=== PATIENT | female | born 1990 | race Caucasian/White ===

== ENCOUNTER 2021-01-24 15:58 | Emergency (ER) | payer OTHER ==
[~2021-01-24] VITALS: Ht 160 cm; Wt 72.6 kg
[2021-01-24] MEDS ORDERED: HYDROCODON-ACE1 EA10 PO (17:00)
== END 2021-01-24 18:25 | disposition home or self-care (01) ==
LOC: ED 15:58
DX: M54.6 Pain in thoracic spine (principal); X50.0XXA Overexertion from strenuous movement or load, initial encounter; Y99.0 Civilian activity done for income or pay; Z88.0 Allergy status to penicillin; Z88.1 Allergy status to other antibiotic agents
CPT/HCPCS: 96372; 99283; J1885

== ENCOUNTER 2021-11-07 09:03 | Inpatient (IN) | payer BC, OTHER ==
[~2021-11-07 09:03] MED LIST: HYDROCODON-ACE1 EA10 PO
--- NOTE | 2021-11-07 10:31 | NUR ---
COVID SWAB DONE TO BOTH NARES.
--- NOTE | 2021-11-07 14:37 | PR ---
[facility] [place] [facility] [address] [facility] [place], [place] [address] Signed Progress Notes IP Datetime Report Generated by CPN: 11/07/2021 14:37 PROGRESS NOTES: [id number] Impression: Normal Progression of Labor Plan: Continue Present Management; Anticipate Vaginal Delivery VITAL SIGNS: [id number] Vital Signs: Reviewed; Within Normal Limits EXAM: [id number] Dilatation: 7.0 Effacement: 90 Station: -1 Contractions: every 2-3 minutes MEMBRANES: [id number] Membranes Status: Intact Comments: Tolerating contractions, doing well, no Epidural desired. Cervix exam just done by RN; no change in past 1 hour. Consider AROM, but patient would like to wait a little longer before AROM. Continue monitoring. FETUS A: [id number] FHR Baseline: 145 Variability: Moderate 6-25bpm Accelerations: 15X15 FETUS B: [id number] Signing Physician: Fercho Alex MD Copies: ~ *Electronically Signed* 11/07/21 1432 FERCHO ALEX MD PATIENT NAME: EVIN ESPINOSA KIESHA PROGRESS NOTE DATE OF : [birth year] PHYSICIAN: FERCHO ALEX MD RPT #: [id number] REPORT IS CONFIDENTIAL AND NOT TO BE RELEASED WITHOUT AUTHORIZATION
--- NOTE | 2021-11-07 15:26 | PR ---
[facility] [address] [facility] [place], [place] [address] Signed Progress Notes IP Datetime Report Generated by CPN: 11/07/2021 15:26 PROGRESS NOTES: [id number] Impression: Normal Progression of Labor Procedures: Artificial ROM Plan: Continue Present Management; Anticipate Vaginal Delivery VITAL SIGNS: [id number] Vital Signs: Reviewed; Within Normal Limits EXAM: [id number] Dilatation: 8.0 Effacement: 90 Station: -1 Contractions: every 2-3 minutes MEMBRANES: [id number] Membranes Status: Ruptured Comments: BOW in front of head, so not well-applied to cervix. Patient continuing to breath through contractions, seem to be getting stronger. FETUS A: [id number] FHR Baseline: 145 Variability: Moderate 6-25bpm Accelerations: 15X15 FETUS B: [id number] Signing Physician: Fercho Alex MD Copies: ~ *Electronically Signed* 11/07/21 1526 FERCHO ALEX MD PATIENT NAME: EVIN ESPINOSA KIESHA PROGRESS NOTE DATE OF : 92 PHYSICIAN: FERCHO ALEX MD RPT #: [id number] REPORT IS CONFIDENTIAL AND NOT TO BE RELEASED WITHOUT AUTHORIZATION
--- NOTE | 2021-11-07 17:04 | PR ---
[facility] [address] [facility] [place], [place] [address] Signed Progress Notes IP Datetime Report Generated by CPN: 11/07/2021 17:04 PROGRESS NOTES: [id number] Impression: Normal Progression of Labor Procedures: Artificial ROM Plan: Continue Present Management VITAL SIGNS: [id number] Vital Signs: Reviewed; Within Normal Limits EXAM: [id number] Dilatation: 9.0 Effacement: 90 Station: 0 Contractions: every 2-3 minutes MEMBRANES: [id number] Membranes Status: Ruptured Comments: Starting to feel "pushy", but still anterior lip of cervix present. Will try "hands-knees" position. Continue close monitoring. FETUS A: [id number] FHR Baseline: 145 Variability: Moderate 6-25bpm Accelerations: 15X15 FETUS B: [id number] Signing Physician: Sigifredo Alex MD Copies: ~ *Electronically Signed* 11/07/21 1704 SIGIFREDO ALEX MD PATIENT NAME: EVIN ESPINOSA PROGRESS NOTE DATE OF : [birth year] PHYSICIAN: SIGIFREDO ALEX MD RPT #: [id number] REPORT IS CONFIDENTIAL AND NOT TO BE RELEASED WITHOUT AUTHORIZATION
--- NOTE | 2021-11-07 18:00 | PR ---
[facility] [address] [facility] [place], [place] [address] Signed Progress Notes IP Datetime Report Generated by CPN: 11/07/2021 18:00 PROGRESS NOTES: [id number] Impression: Normal Progression of Labor Other Impressions: Slow progress Procedures: Artificial ROM Plan: Continue Present Management VITAL SIGNS: [id number] Vital Signs: Reviewed; Within Normal Limits EXAM: [id number] Dilatation: 9.0 Effacement: 90 Station: 0 Contractions: every 2-3 minutes MEMBRANES: [id number] Membranes Status: Ruptured Comments: STill cervix, mostly anterior. vertex feels straight OP after trying "hands-knees". Will try different positions. Patient handling contractions well, contractions seem to be quite strong. FETUS A: [id number] FHR Baseline: 145 Variability: Moderate 6-25bpm Accelerations: 15X15 FETUS B: [id number] Signing Physician: Fercho Alex MD Copies: ~ *Electronically Signed* 11/07/21 1800 FERCHO ALEX MD PATIENT NAME: EVIN ESPINOSA KIESHA PROGRESS NOTE DATE OF : [birth year] PHYSICIAN: FERCHO ALEX MD RPT #: [id number] REPORT IS CONFIDENTIAL AND NOT TO BE RELEASED WITHOUT AUTHORIZATION
--- NOTE | 2021-11-07 19:07 | PR ---
[facility] [address] [facility] [place], [place] [address] Signed Progress Notes IP Datetime Report Generated by CPN: 11/07/2021 19:07 PROGRESS NOTES: [id number] Impression: Normal Progression of Labor Other Impressions: Slow progress Procedures: Artificial ROM Plan: Anesthesia Consult Other Plans: call for Epidural VITAL SIGNS: [id number] Vital Signs: Reviewed; Within Normal Limits EXAM: [id number] Dilatation: 9.0 Effacement: 90 Station: 0 Contractions: every 2-3 minutes MEMBRANES: [id number] Membranes Status: Ruptured Comments: No change for 2 hours despite frequent strong contracitons. Patient getting worn out. Will call for Epidural to see if this will help, per patient request. FETUS A: [id number] FHR Baseline: 145 Variability: Moderate 6-25bpm Accelerations: 15X15 FETUS B: [id number] Signing Physician: Fercho Alex MD Copies: ~ *Electronically Signed* 11/07/211906 FERCHO ALEX MD PATIENT NAME: EVIN ESPINOSA KIESHA PROGRESS NOTE DATE OF : [birth year] PHYSICIAN: FERCHO ALEX MD RPT #: [id number] REPORT IS CONFIDENTIAL AND NOT TO BE RELEASED WITHOUT AUTHORIZATION
--- NOTE | 2021-11-08 10:56 | PR ---
[facility] [address] [facility] [place] [address] Signed PP Progress Notes Datetime Report Generated by CPN: 11/08/2021 10:56 SUBJECTIVE: [id number] Pain: Within Normal Limits Nausea/Vomiting: Denies Vital Signs: [id number] Vital Signs: Reviewed; Within Normal Limits Notable Details: PP Hgb/Hct = 12.9/39.3 Abdomen/Uterus: Normal Lochia: Normal Extremities: Normal IMPRESSION/PLAN/PROCEDURES: [id number] Impression: Normal Progression Plan: Discharge Procedures: None Progress Notes: Doing well, without complaint, wants to go home today. Signing Physician: Sigifredo Alex MD Copies: ~ *Electronically Signed* 11/08/21 1056 SIGIFREDO ALEX MD PATIENT NAME: EVIN ESPINOSA PROGRESS NOTE DATE OF : 92 PHYSICIAN: SIGIFREDO ALEX MD RPT #: [id number] REPORT IS CONFIDENTIAL AND NOT TO BE RELEASED WITHOUT AUTHORIZATION
== END 2021-11-08 21:55 | disposition home or self-care (01) | DRG 807 ==
LOC: FBCO 09:03 → FBC 10:05
PROVIDERS: ADMIT General Practice; ATTEND General Practice
PROC: 10E0XZZ Delivery of Products of Conception, External Approach (ICD-10-PCS; principal; 2021-11-07)
PROC: 0HQ9XZZ Repair Perineum Skin, External Approach (ICD-10-PCS; 2021-11-07)
PROC: 10907ZC Drainage of Amniotic Fluid, Therapeutic from Products of Conception, Via Natural or Artificial Opening (ICD-10-PCS; 2021-11-07)
DX: O99.824 Streptococcus B carrier state complicating childbirth (principal); Z37.0 Single live birth; O99.324 Drug use complicating childbirth; O70.0 First degree perineal laceration during delivery; F12.90 Cannabis use, unspecified, uncomplicated; O99.334 Smoking (tobacco) complicating childbirth; F17.200 Nicotine dependence, unspecified, uncomplicated; Z20.822 Contact with and (suspected) exposure to COVID-19; Z3A.39 39 weeks gestation of pregnancy; Z67.40 Type O blood, Rh positive
CPT/HCPCS: 01960; 85027; A9270; C9803; J2590; J2795; J3010; J3370; J7060; J7121; U0003

== ENCOUNTER 2024-02-28 08:00 | Day surgery (SDC) | payer BC ==
[~2024-02-28] VITALS: Ht 160 cm; Wt 80.0 kg
[~2024-02-28 08:00] MED LIST changes: +ACETAMINOPHEN 1,000 MG/100 ML VIAL ONE; +DEXAMETHASONE SOD PHOS 4 MG/ML VIAL ONE; +IBLOOD GLUCOSE TEST STRIP 1 EA TEST VI PRN; +KELP150 MCG PO; +LACTATED RINGER'S 1,000 ML IV SCH; +LIDOCAINE HCL 1% 5 ML SDV INJ ONE; +LIDOCAINE HCL 2% 5 ML SDV ONE; +MELATONIN5 M2 PO; +METFORMIN HCL500 M2 PO; +MIDAZOLAM HCL 2 MG/2 ML VIAL ONE; +ONDANSETRON ODT8 MG SL; +PROGESTERONE100 MG PO; +ROCURONIUM BROMIDE 50 MG/5 ML SYR ONE; +SUGAMMADEX SODIUM 200 MG/2 ML ML ONE; +VITAMIN D350 MCG PO; +fentaNYL citrate 100 MCG/2 ML VIAL ONE; +ondansetron HCL 4 MG/2 ML VIAL ONE; +propofoL 200 MG/20 ML VIAL ONE
[2024-02-28 08:14] VITALS: BP 122/75
[2024-02-28] MEDS ORDERED: ACETAMINOPHEN 1,000 MG/100 ML VIAL ONE (09:15)
[2024-02-28] MEDS ORDERED: SCOPOLAMINE 1 MG/3 DAYS PATCH 1 EACH TDSY ONE (09:28)
[2024-02-28] MEDS ORDERED: ondansetron HCL 4 MG/2 ML VIAL ONE (09:28)
[2024-02-28] MEDS ORDERED: fentaNYL citrate 50 MCG/ML SDV IV PRN (09:45)
[2024-02-28] MEDS ORDERED: IBLOOD GLUCOSE TEST STRIP 1 EA TEST VI PRN (09:45)
[2024-02-28] MEDS ORDERED: METOCLOPRAMIDE HCL 10 MG/2 ML SDV IV PRN (09:45)
[2024-02-28] MEDS ORDERED: PROCHLORPERAZINE EDISYLATE 10 MG/2 ML VIAL IV PRN (09:45)
[2024-02-28] MEDS ORDERED: HYDROmorphone HCL 1 MG/ML SYR IV PRN (09:45)
[2024-02-28] MEDS ORDERED: droPERidol 5 MG/2 ML VIAL IV PRN (09:45)
[2024-02-28] MEDS ORDERED: NALOXONE HCL 0.4 MG SYR IV PRN (09:45)
[2024-02-28] MEDS ORDERED: fentaNYL citrate 100 MCG/2 ML VIAL ONE (09:46)
[2024-02-28] MEDS ORDERED: ONDANSETRON 4 MG TAB ODT SL PRN (10:30)
[2024-02-28] MEDS ORDERED: ACETA/HYDROCODONE 325/7.5 15 ML BTL PO PRN (10:30)
--- NOTE | 2024-02-28 10:30 | NUR ---
PT ARRIVES TO DS UNIT FROM PACU VIA STRETCHER. PT REPORTS PAIN 5/10 AT THIS TIME. VS TAKEN. PT RESPIRATIONS EVEN AND UNLABORED, ON RA W/O2 >90%. PT IS DROWSY, BUT ASKING QUESTIONS APPROPRIATELY, OCCASIONALLY EMOTIONAL. PT REPORTS NO NAUSEA, DIZZINESS, OR SOB. PT STATES SLIGHT SENSATION OF ROOM SPINNING, PT ENCOURAGED TO REST. PT SIPPING APPLE JUICE AND EATING POPSICLE AT THIS TIME. IS AT BEDSIDE FOR REPORT FROM SILVA PIERCE. CALL LIGHT WITHIN REACH, PT REPORTS NO FURTHER NEEDS AT THIS TIME.
[2024-02-28 10:31] VITALS: BP 140/79
--- NOTE | 2024-02-28 10:37 | NUR ---
02/28/24 1037 Kayla Scruggs 5942 PT ARRIVED IN PACU NON RESPONSIVE TO NOXIOUS STIMULI WITH OPA IN PLACE. 1018 PT REACTIVE. OPA REMOVED. 1020 PT C/O SORE THROAT 5/10 AND FEELING COLD. WARM BLANKETS GIVEN. 1030 TO DS. REPORT GIVEN TO RN. SPOUSE AT BEDSIDE.
--- NOTE | 2024-02-28 11:00 | NUR ---
ANSWERED PT CALL LIGHT D/T REPORT OF PT NEED TO URINE VOID. PT TO BATHROOM W/THIS RN AND STANDBY ASSIST. PT GAIT IS STEADY AT BEDSIDE, PT REPORTS NO DIZZINESS OR NAUSEA AT THIS TIME. PT VOIDS 200 ML OF CLEAR/YELLOW URINE. PT BACK TO BED W/WARM BLANKETS AND ICE WATER PROVIDED. PT REPORTS PAIN 6/10 AND REQUESTS PAIN MEDS AT THIS TIME, GIVEN (SEE EMAR). SITE VISUALIZED, WHITE W/SCANT AMOUNT RED ON BACK OF THROAT, UVULA SWOLLEN AT THIS TIME. PT STATES NEED TO SWALLOW BECAUSE SHE FEELS THOUGH SOMETHING IS "IN THE BACK OF HER THROAT". PT ENCOURAGED TO REST, AT BEDSIDE. CALL LIGHT WITHIN REACH, NO FURTHER NEEDS AT THIS TIME.
--- NOTE | 2024-02-28 11:30 | NUR ---
IN PT ROOM FOR PAIN ASSESSMENT, PT REPORTS PAIN HAS REDUCED TO 4/10 BUT HAS NAGGING DRY COUGH THAT INCREASES PAIN. DISCUSSED W/HEDY MOLD PARTER AND ICE CHIPS PROVIDED. PT STATES THIS IS AIDING IN REDUCING URGE TO COUGH. NO ACUTE CHANGES FROM PREVIOUS ASSESMENT OF SURGICAL SITE. PT REPORTS DESIRE TO GO HOME. PT GETTING DRESSED AT THIS TIME, IN ROOM TO ASSIST. CALL LIGHT WITHIN REACH.
--- NOTE | 2024-02-28 11:55 | OR ---
[facility] [address] [place], [place] [address] Signed DATE OF OPERATION: 02/28/2024 SURGEON: James Carrasco MD PREOPERATIVE DIAGNOSIS: Chronic tonsillitis. POSTOPERATIVE DIAGNOSIS: Chronic tonsillitis. PROCEDURE: Tonsillectomy. 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 OPERATIVE PROCEDURE AND FINDINGS: After informed consent, the patient was taken to the operating room, placed in supine position, where general orotracheal anesthesia was induced. Patient and procedure were verified. The patient was repositioned. McIvor mouth gag placed into suspension. Headlight exam of the pharynx showed moderately hypertrophic cryptic tonsils, . The left tonsil was grasped with a tenaculum, retracted medially and removed from its fossa with mucosal sparing incision with Coblation. Field was dry after the procedure. Same procedure on the right tonsil, tonsils were sent to Pathology. Mouth gag was released for several minutes. Reinspection showed no bleeding points. The pharynx was suctioned clear of blood and secretions. Mouth gag was removed. The patient was awakened, extubated, and transported to the recovery room in good condition. No complications. BLOOD LOSS: Minimal. SPECIMEN: To Pathology. DRAINS: Electronically Signed By: JAMES CARRASCO MD 02/28/24 1155 PATIENT NAME: EVIN ESPINOSA OPERATIVE REPORT DATE OF : 92 REPORT #: [id number] PHYSICIAN: JAMES CARRASCO MD PCP: RENITA MAYO PAC REPORT IS CONFIDENTIAL AND NOT TO BE RELEASED WITHOUT AUTHORIZATION [address] [address] Signed No drains. James Carrasco MD GC/MODL /[id number] Copies: ~ Electronically Signed By: JAMES CARRASCO MD 02/28/24 1155 PATIENT NAME: EVIN ESPINOSA OPERATIVE REPORT DATE OF : [birth year] REPORT #: [id number] PHYSICIAN: JAMES CARRASCO MD PCP: RENITA MAYO PAC REPORT IS CONFIDENTIAL AND NOT TO BE RELEASED WITHOUT AUTHORIZATION
[2024-02-28 11:59] VITALS: BP 114/68
--- NOTE | 2024-02-28 12:00 | NUR ---
IN PT ROOM FOR DISCHARGE EDUCATION, PT AND PT STATE VERBAL UNDERSTANDING AND STATE NO FURTHER QUESTIONS AT THIS TIME. IV DC'ED, WNL, GAUZE/COBAN IN PLACE. PT OFF OF UNIT VIA WC TO PASSENGER SIDE OF 'S VEHICLE. PT REPORTS NO FURTHER QUESTIONS OR NEEDS AT THIS TIME. ALL BELONGINGS IN PT POSSESSION. HAND WRITTEN PRESCRIPTION HANDED TO .
--- NOTE | 2024-03-02 17:21 | PATH ---
[facility] [address] [facility] [place], [place] [address] Signed SPECIMEN(S): A LEFT AND RIGHT TONSIL SPECIMEN SOURCE: A. LEFT AND RIGHT TONSIL CLINICAL HISTORY: (J35.01) Chronic tonsillitis, Chronic strep (J02.0). GROSS ONLY. FINAL PATHOLOGIC DIAGNOSIS: Tonsils, left and right, tonsillectomies: - Tonsillar tissue as grossly described; gross diagnosis only BRP MICROSCOPIC EXAMINATION: Histologic sections of all submitted blocks are examined by light microscopy. These findings, together with the gross examination, support the pathologic diagnosis. GROSS DESCRIPTION: The specimen, labeled and designated "Valerie Marlena" and designated on the requisition "left and right tonsil gross only," is received in formalin and consists of two zambrano-pink to red-brown undesignated tonsils (2.8 x 2.0 x 1.9 cm, and 2.8 x 1.8 x 1.6 cm). One tonsil is arbitrarily inked blue. Both tonsils are serially sectioned to reveal zambrano-pink to red-brown soft cut surfaces. The specimen is for gross examination only. AC (under the direct supervision of a pathologist) The Gross Description was prepared using a voice recognition system. The report was reviewed for accuracy; however, sound-alike word errors, addition and/or deletions may occur. If there is any question about this report, please contact Client Services. ADDITIONAL NOTES: Immunohistochemical and/or in situ hybridization studies if performed in this case included appropriate positive controls that reacted as expected. This test was developed and its performance characteristics determined by [facility]. It has not been cleared or approved by the U.S. Food and Drug Administration. The FDA has determined that such clearance or approval is not necessary. This test is used for clinical purposes. It should not be regarded as investigational or for research. [facility] is certified under the PATIENT NAME: EVIN ESPINOSA PATHOLOGY DATE OF : [birth year] REPORT #: [id number] PHYSICIAN: ANDI OCASIO PCP: RENITA MAYO PAC REPORT IS CONFIDENTIAL AND NOT TO BE RELEASED WITHOUT AUTHORIZATION [facility] [address] [facility] [place], [place] [address] Signed Clinical Laboratory Improvement Amendments of 1988 (CLIA) as qualified to perform high complexity clinical laboratory testing. PERFORMING LABORATORY: Technical component was performed by [facility], [address] [place] [id number] (CLIA# [id number]). Professional interpretation was performed by [facility] [address] [place] [id number] [id number] Diagnostician: Darnell Cline MD Pathologist Electronically Signed 03/02/2024 Copies: ~ PATIENT NAME: EVIN ESPINOSA PATHOLOGY DATE OF : [birth year] REPORT #: [id number] PHYSICIAN: ANDI PATHOLOGY PCP: RENITA MAYO PAC REPORT IS CONFIDENTIAL AND NOT TO BE RELEASED WITHOUT AUTHORIZATION
== END 2024-02-28 12:15 | disposition home or self-care (01) ==
LOC: OPS 08:00 → DS 08:00 → OPS 09:30
PROVIDERS: ATTEND Otolaryngology
PROC: 0CTPXZZ Resection of Tonsils, External Approach (ICD-10-PCS; principal; 2024-02-28 09:30)
DX: J35.01 Chronic tonsillitis (principal); J35.8 Other chronic diseases of tonsils and adenoids; Z88.0 Allergy status to penicillin; Z88.1 Allergy status to other antibiotic agents; Z79.84 Long term (current) use of oral hypoglycemic drugs; Z79.899 Other long term (current) drug therapy; Z79.890 Hormone replacement therapy
CPT/HCPCS: 00170; J0131; J1100; J2001; J2250; J2405; J2704; J3010; J3490; J7121

== ENCOUNTER 2024-03-29 06:00 | Day surgery (SDC) | payer BC ==
[~2024-03-29] VITALS: Ht 160 cm; Wt 79.0 kg
[~2024-03-29 06:00] MED LIST changes: -ACETAMINOPHEN 1,000 MG/100 ML VIAL ONE; -DEXAMETHASONE SOD PHOS 4 MG/ML VIAL ONE; -IBLOOD GLUCOSE TEST STRIP 1 EA TEST VI PRN; -LIDOCAINE HCL 1% 5 ML SDV INJ ONE; -LIDOCAINE HCL 2% 5 ML SDV ONE; -MIDAZOLAM HCL 2 MG/2 ML VIAL ONE; -ROCURONIUM BROMIDE 50 MG/5 ML SYR ONE; -SUGAMMADEX SODIUM 200 MG/2 ML ML ONE; -fentaNYL citrate 100 MCG/2 ML VIAL ONE; -ondansetron HCL 4 MG/2 ML VIAL ONE; -propofoL 200 MG/20 ML VIAL ONE
[2024-03-29 06:14] VITALS: BP 123/74
[2024-03-29] MEDS ORDERED: DHEA25 MG PO (06:21)
[2024-03-29] MEDS ORDERED: SODIUM CHLORIDE 0.9% 40 ML IV ONE (06:52)
[2024-03-29] MEDS ORDERED: iopamidoL 30 ML VIAL ONE (06:52)
[2024-03-29] MEDS ORDERED: IBLOOD GLUCOSE TEST STRIP 1 EA TEST VI PRN ×2 (07:00→08:00)
[2024-03-29] MEDS ORDERED: HEParin SOD (PORCINE) 5,000 UNIT/0.5 ML SYR SUB-Q SCH (07:00)
[2024-03-29] MEDS ORDERED: LIDOCAINE HCL 1% 5 ML SDV INJ ONE (07:00)
[2024-03-29] MEDS ORDERED: CLINDAMYCIN PHOSPHATE/D5W 600 MG/50 ML BAG IV SCH (07:00)
[2024-03-29] MEDS ORDERED: LIDOCAINE HCL 2% 5 ML SDV ONE (07:18)
[2024-03-29] MEDS ORDERED: KETOROLAC TROMETHAMINE 30 MG/ML VIAL ONE (07:18)
[2024-03-29] MEDS ORDERED: fentaNYL citrate 100 MCG/2 ML VIAL ONE (07:18)
[2024-03-29] MEDS ORDERED: ACETAMINOPHEN 1,000 MG/100 ML VIAL ONE (07:18)
[2024-03-29] MEDS ORDERED: dexmedeTOMIDine HCl 200 MCG/2 ML VIAL ONE (07:18)
[2024-03-29] MEDS ORDERED: ROCURONIUM BROMIDE 50 MG/5 ML SYR ONE (07:18)
[2024-03-29] MEDS ORDERED: propofoL 200 MG/20 ML VIAL ONE (07:18)
[2024-03-29] MEDS ORDERED: SUGAMMADEX SODIUM 200 MG/2 ML ML ONE (07:18)
[2024-03-29] MEDS ORDERED: LIDOCAINE HCL 2% 20 MG/ML VIAL INJ ONE (07:19)
[2024-03-29] MEDS ORDERED: KETAMINE in NS 50 MG/5 ML SYR ONE (07:20)
[2024-03-29] MEDS ORDERED: ondansetron HCL 4 MG/2 ML VIAL ONE ×2 (07:20)
[2024-03-29] MEDS ORDERED: DEXAMETHASONE SOD PHOS 4 MG/ML VIAL ONE ×2 (07:21)
--- NOTE | 2024-03-29 07:37 | NUR ---
UNABLE TO VISIT DURING SPIRITUAL CARE ROUNDS; PT GONE FOR PROCEDURE. PROVIDED PRAYER.
[2024-03-29] MEDS ORDERED: LACTATED RINGER'S 1,000 ML IV ONE (07:53)
[2024-03-29] MEDS ORDERED: SCOPOLAMINE 1 MG/3 DAYS PATCH 1 EACH TDSY ONE (07:53)
[2024-03-29] MEDS ORDERED: fentaNYL citrate 50 MCG/ML SDV IV PRN (08:00)
[2024-03-29] MEDS ORDERED: HYDROmorphone HCL 1 MG/ML SYR IV PRN (08:00)
[2024-03-29] MEDS ORDERED: ondansetron HCL 4 MG/2 ML VIAL IV PRN (08:00)
[2024-03-29] MEDS ORDERED: PROCHLORPERAZINE EDISYLATE 10 MG/2 ML VIAL IV PRN (08:00)
[2024-03-29] MEDS ORDERED: droPERidol 5 MG/2 ML VIAL IV PRN ×2 (08:00→11:15)
[2024-03-29] MEDS ORDERED: NALOXONE HCL 0.4 MG SYR IV PRN ×2 (08:00→09:00)
[2024-03-29] MEDS ORDERED: MORPHINE SULFATE 1 MG/ML VIAL ONE (08:06)
[2024-03-29] MEDS ORDERED: MORPHINE SULFATE 10 MG/ML VIAL ONE (08:06)
--- NOTE | 2024-03-29 08:44 | NUR ---
03/29/24 0844 Candelaria Brito 7587-PATIENT ARRIVED TO PACU ON 6L MASK NONAROUSABLE ORAL AIRWAY IN PLACE RR EVEN. SEMI FOWLERS POSITION. IVF INFUSING. SR HR 60'S 4 LAP SITES INTACT, OPSITE OVER BLEMISH
[2024-03-29] MEDS ORDERED: IBUPROFEN600 MG PO (08:56)
[2024-03-29] MEDS ORDERED: ACETAMINOPHEN500 MG PO (08:57)
[2024-03-29] MEDS ORDERED: OXYCODON-ACETA1 EAC2 PO (08:57)
[2024-03-29] MEDS ORDERED: ONDANSETRON ODT4 MG SL (08:57)
[2024-03-29] MEDS ORDERED: ACETAMINOPHEN 500 MG TAB PO PRN (09:00)
[2024-03-29] MEDS ORDERED: LACTATED RINGER'S 1,000 ML IV SCH (09:00)
[2024-03-29] MEDS ORDERED: IBUPROFEN 600 MG TAB PO PRN (09:00)
[2024-03-29] MEDS ORDERED: OXYCODONE/APAP 7.5/325 TAB PO PRN (09:00)
[2024-03-29] MEDS ORDERED: ONDANSETRON 4 MG TAB ODT SL PRN (09:00)
[2024-03-29 09:36] VITALS: BP 117/57
[2024-03-29] MEDS ORDERED: HYDROmorphone HCL 1 MG/ML SYR IV ONE ×2 (09:45→10:30)
[2024-03-29 10:35] VITALS: BP 101/45
--- NOTE | 2024-03-29 11:04 | NUR ---
1057-NEW ORDER RECEIVED FROM DR. SALGUERO 0.625MG INAPSINE IV FOR NAUSEA.
[2024-03-29 11:40] VITALS: BP 101/60
--- NOTE | 2024-03-29 11:50 | NUR ---
0935- PT ARRIVES BACK IN DAY SURGERY BY STRETCHER, TEARFUL. VITAL SIGNS OBTAINED, LR INFUSING TO RAC IV. REPORT RECEIVED FROM AICHA PIERCE. PT DROWSY BUT ANSWER QUESTIONS APPROPRIATELY, ATTEMPTING TO CALM SELF WITH BREATHING TECHNIQUES. PT REPORTS CRYING DUE TO PAIN, 8/10. ABD SOFT, NON DISTENDED. 4 LAP SITES WITH STERI STRIPS IN PLACE, CDI. AT BEDSIDE. WILL REQUEST IV PAIN MEDICATION FROM DR SALGUERO. PILLOW PROVIDED TO SPLINT ABD. 0955- PT MEDICATED PER ORDERS FOR PAIN. ICE WATER, POPSICLE, AND PUDDING AT BEDSIDE. 1015- PT REPORTS PAIN DOWN TO 5/10 AT THIS TIME, NO LONGER TEARFUL. 2ND DOSE OF DILAUDID GIVEN. PT DROWSY BUT AWAKE AND ANSWERING ALL QUESTIONS. PT FINISHED POPSICLE AND SIPPING ON WATER. ENCOURAGED TO EAT PUDDING TO ALLOW FOR PO PAIN MEDICATION. 1045- PT REPORTS THAT FIRST BITE OF PUDDING MADE HER SOMEWHAT NAUSEATED BUT THINKS BECAUSE HER STOMACH WAS EMPTY. COMPLETED PUDDING AND TOOK PO PAIN PILL TO STAY ON TOP OF PAIN. 1050- PT UP TO SIDE OF BED TO AMBULATE TO BATHROOM. TOLERATING WELL. AMBULATED WITH STEADY GAIT WITH THIS RN, HAT PLACED IN TOILET TO MEASURE FIRST VOID. 1055- PT BACK TO ROOM DRY HEAVING AFTER MOVING AROUND. ALCOHOL SWAB PROVIDED TO ASSIST WITH NAUSEA. WILL OBTAIN IV ANITEMETICS ORDER FROM DR SALGUERO. 200 ML CLEAR YELLOW URINE IN HAT. 1105- BACK IN THE ROOM, PT MEDICATED WITH INAPSINE. REASSESSED SURGICAL SITES AFTER WRETCHING. ALL SURGICAL SITES WELL APPROXIMATED, SMALL AMOUNT OF BLOODY DRAINAGE FROM UMBILICAL INCISION. ABD SOFT, NON DISTENDED. HOT PACK PROVIDED FOR PAIN. 1140- PT DROWSY BUT WAKES EASILY. REPORTS NAUSEA IS GONE AND PAIN IS DOWN TO 3/10. PT IS COMFORTABLE TO GO HOME AND CONTINUE TO REST WELL FAMILY. WILL GET UP TO GET DRESSED AND READY FOR DISCHARGE. 1150- D/C INSTRUCTIONS GONE OVER WITH AND PT, VERBALIZED UNDERSTANDING. SALINE LOCK REMOVED, TIP INTACT, DRESSING APPLIED. PICKED UP PRESCRIPTIONS WHILE WAITING FOR PT. WORK NOTE PROVIDED. PT DROWSY BUT AMBULATES WITH STEADY GAIT TO WHEEL CHAIR. OUT TO BRING CAR AROUND WITH ALL BELONGINGS. NO SIGNS OF DISTRESS.
--- NOTE | 2024-03-31 10:52 | OR ---
[facility] [address] [place], [place] [address] Signed DATE OF OPERATION: 03/29/2024 SURGEON: Jose Salguero MD PREOPERATIVE DIAGNOSIS: Chronic acalculous cholecystitis. 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 PROCEDURES: 1. Laparoscopic cholecystectomy with intraoperative cholangiogram. 2. Surgeon-directed fluoroscopy. ANESTHESIA: General endotracheal; Chema Oliveira CRNA and local 10 mL of 0.25% Marcaine with epinephrine. 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 She has had recurrent bouts of epigastric and actual left upper abdominal pain. Gallbladder ultrasound showed gallbladder sludge and subsequent CCK-HIDA test performed on November 17, 2023 showed an ejection fraction of 30% at 15 minutes and 59% at 30 minute with reproduction of her left upper quadrant and epigastric pain symptoms. She does have family history of cholecystectomy in her mother and a family history of pancreatic cancer and Crohn disease. The patient is considered likely to have chronic acalculous cholecystitis and is offered cholecystectomy for that. She understands the risk of bleeding, infection, bile duct injury, failure to cure her symptoms and need for other indicated procedures depending on operative findings. Understanding that she wished to proceed. FINDINGS: Gallbladder was chronically inflamed. It was not excessively large. The liver was normal. Intraoperative cholangiogram was normal with no sign of filling defect or stone. Gallbladder once excised and opened showed a strawberry mucosa with significant cholesterolosis consistent with diseased gallbladder. PROCEDURE IN DETAIL: The patient was brought to the operating room, given a general endotracheal anesthetic. Electronically Signed By: JOSE SALGUERO MD 03/31/24 1052 PATIENT NAME: EVIN ESPINOSA OPERATIVE REPORT DATE OF : [birth year] REPORT #: [id number] PHYSICIAN: JOSE SALGUERO MD PCP: RAFAELA MAYO PAC REPORT IS CONFIDENTIAL AND NOT TO BE RELEASED WITHOUT AUTHORIZATION [facility] [address] [place], [place] [address] Signed Preoperative antibiotic clindamycin was given. Sequential compression device stocking was used and heparin subcutaneously administered. The abdomen was prepared with a chlorhexidine solution and draped sterilely. An infraumbilical incision was made and using an open Jimbo cannula technique pneumoperitoneum was achieved to a level of 14 mmHg of carbon dioxide gas. Intra-abdominal inspection showed no sign of ascites or carcinomatosis. Gallbladder was obscured from view initially. Liver appeared normal. Three additional trocars were placed in usual configuration in the subxiphoid, right midclavicular, and right anterior axillary line. Gallbladder was elevated cephalad and retracted laterally. There were no adhesions to the undersurface of the gallbladder. Transillumination of the gallbladder wall did show cholesterolosis. Using blunt electrocautery dissection the triangle of Calot was dissected free. There was a slightly enlarged pericholecystic lymph node. The cystic duct was ultimately isolated well and a clip applied across gallbladder cystic duct junction. A transverse choledochotomy was made in the cystic duct. A small amount of blood along the cystic duct was secured with minimal cautery. Using the Ac type cholangiocatheter intraoperative cholangiography was undertaken showing free flow of contrast in the biliary tree with prompt emptying into the duodenum. Retrograde flow was not forthcoming. On that basis, 4 mg of morphine was administered intravenously to induce ampullary spasm. Brief retrograde filling to the proximal hepatic duct was noted but full delineation of the more proximal biliary tree was not forthcoming. Catheter was removed. Cystic duct was triply clipped and divided. Gallbladder was then dissected free in a retrograde fashion using electrocautery. Gallbladder was extracted through the infraumbilical port site without problem opened on the back table and found to have profound cholesterolosis consistent with "strawberry gallbladder." Irrigation was undertaken in subhepatic space. There was no sign of bleeding or other problems. The trocars removed under direct visualization showing no sign of bleeding. The infraumbilical fascial incision was then closed with interrupted 0 Vicryl suture. 10 mL of 0.25% Marcaine with epinephrine was injected locally. The skin was closed with interrupted 3-0 Vicryl. Steri-Strips were applied. She tolerated procedure well. Blood loss was quite minimal. Sponge, needle, and instrument counts reported as correct x3. MD DELONTE Jeter/MODL Electronically Signed By: JOSE SALGUERO MD 03/31/24 1052 PATIENT NAME: EVIN ESPINOSA OPERATIVE REPORT DATE OF : [birth year] REPORT #: [id number] PHYSICIAN: JOSE SALGUERO MD PCP: RAFAELA MAYO PAC REPORT IS CONFIDENTIAL AND NOT TO BE RELEASED WITHOUT AUTHORIZATION [address] [address] Signed /[id number] cc: Rafaela Mayo PA-C Copies: ~ Electronically Signed By: JOSE SALGUERO MD 03/31/24 1052 PATIENT NAME: EVIN ESPINOSA KIESHA OPERATIVE REPORT DATE OF : [birth year] REPORT #: [id number] PHYSICIAN: JOSE SALGUERO MD PCP: RAFAELA MAYO PAC REPORT IS CONFIDENTIAL AND NOT TO BE RELEASED WITHOUT AUTHORIZATION
--- NOTE | 2024-04-02 18:25 | PATH ---
[facility] [address] [place], [place] [address] Signed SPECIMEN(S): A GALLBLADDER BILIARY COLIC SPECIMEN SOURCE: A. GALLBLADDER BILIARY COLIC CLINICAL HISTORY: Biliary colic Biliary colic FINAL PATHOLOGIC DIAGNOSIS: Gallbladder, cholecystectomy: - Chronic cholecystitis removed in therapy of biliary colic. - Cholesterolosis - No malignancy identified. [facility] MICROSCOPIC EXAMINATION: Histologic sections of all submitted blocks are examined by light microscopy. These findings, together with the gross examination, support the pathologic diagnosis. GROSS DESCRIPTION: The specimen, labeled and designated "alan Padilla," is received in formalin and consists of Specimen: Previously opened gallbladder. Dimensions: 5.5 x 2.4 cm. Serosa: Violaceous, smooth. Cystic Duct: Inked, unobstructed. Calculi: Calculi are not grossly identified within the gallbladder or within the container. Mucosa: Grano-zambrano and velvety with yellow flecking. Wall thickness: 0.2 cm. Lymph node: No pericystic lymph nodes are grossly identified. Additional: None. Floor Helper sections are submitted in (A1). JS (under the direct supervision of a pathologist) The Gross Description was prepared using a voice recognition system. The report was reviewed for accuracy; however, sound-alike word errors, addition and/or deletions may occur. If there is any question about this report, please contact Client Services. PATIENT NAME: EVIN PADILLA [facility] DATE OF : 89 REPORT #: [id number] PHYSICIAN: ANDI OCASIO PCP: RENITA MAYO PAC REPORT IS CONFIDENTIAL AND NOT TO BE RELEASED WITHOUT AUTHORIZATION [facility] [address] [place], [place] [address] Signed ADDITIONAL NOTES: Immunohistochemical and/or in situ hybridization studies if performed in this case included appropriate positive controls that reacted as expected. This test was developed and its performance characteristics determined by [facility]. It has not been cleared or approved by the U.S. Food and Drug Administration. The FDA has determined that such clearance or approval is not necessary. This test is used for clinical purposes. It should not be regarded as investigational or for research. [facility] is certified under the Clinical Laboratory Improvement Amendments of 1988 (CLIA) as qualified to perform high complexity clinical laboratory testing. PERFORMING LABORATORY: Technical component was performed by [facility], [address] [place] [id number] (CLIA# [id number]). Professional interpretation was performed by [facility], [address] [place] [id number] (CLIA#: [id number]). Diagnostician: Hugo Martinez MD Pathologist Electronically Signed 04/02/2024 Copies: ~ PATIENT NAME: EVIN PADILLA [facility] DATE OF : [birth year] REPORT #: [id number] PHYSICIAN: ANDI PATHOLOGY PCP: RENITA MAYO PAC REPORT IS CONFIDENTIAL AND NOT TO BE RELEASED WITHOUT AUTHORIZATION
== END 2024-03-29 18:00 | disposition home or self-care (01) ==
LOC: DS 06:00 → OPS 06:00 → DS 07:30 → OPS 07:30
PROVIDERS: ATTEND Surgery
PROC: 0FT44ZZ Resection of Gallbladder, Percutaneous Endoscopic Approach (ICD-10-PCS; principal; 2024-03-29 07:30)
DX: K81.1 Chronic cholecystitis (principal); K83.8 Other specified diseases of biliary tract; E28.2 Polycystic ovarian syndrome; Z88.1 Allergy status to other antibiotic agents; Z88.0 Allergy status to penicillin; Z79.84 Long term (current) use of oral hypoglycemic drugs; Z79.899 Other long term (current) drug therapy
CPT/HCPCS: 00790; 36415; 74300; 84703; J0131; J1100; J1170; J1644; J1790; J1885; J2001; J2270; J2274; J2405; J2704; J3010; J3490; J7121; Q9967

== ENCOUNTER 2025-07-26 00:02 | Inpatient (IN) | payer BC ==
[~2025-07-26] VITALS: Ht 160 cm; Wt 87.5 kg
[~2025-07-26 00:02] MED LIST changes: +ACETAMINOPHEN500 MG PO; +DHEA25 MG PO; +IBUPROFEN600 MG PO; -LACTATED RINGER'S 1,000 ML IV SCH; +ONDANSETRON ODT4 MG SL; +OXYCODON-ACETA1 EAC2 PO
[2025-07-26] MEDS ORDERED: LIDOCAINE HCL 1% 30 ML SDV INJ PRN (00:30)
[2025-07-26] MEDS ORDERED: TERBUTALINE SULFATE 1 MG/ML AMP SUB-Q PRN (00:30)
[2025-07-26] MEDS ORDERED: LACTATED RINGER'S 1,000 ML IV SCH (00:30)
[2025-07-26] MEDS ORDERED: LACTATED RINGER'S 1,000 ML IV PRN (00:30)
[2025-07-26] MEDS ORDERED: OXYTOCIN/0.9 % SODIUM CHLORIDE 30 UNITS/500 ML BAG IV SCH (00:30)
[2025-07-26] MEDS ORDERED: CALCIUM CARBONATE 500 MG CHEW PO PRN (00:30)
[2025-07-26] MEDS ORDERED: MAGNESIUM HYDROXIDE/AL HYDROX 30 ML CUP PO PRN (00:30)
[2025-07-26 00:59] LABS: MCH 28.5 PG (25.6-32.2); MCHC 32.2 g/dL (32.2-35.5); MCV 88.5 fL (79.4-94.8); RBC 4.18 M/uL (3.93-5.22)
[2025-07-26 01:15] LABS: AMPHETAMINES, URINE NEGATIVE (NEGATIVE); BARBITURATES, URINE NEGATIVE (NEGATIVE); BENZODIAZEPINE, URINE NEGATIVE (NEGATIVE); CANNABINOID, URINE NEGATIVE (NEGATIVE); COCAINE, URINE NEGATIVE (NEGATIVE); ECSTASY, URINE NEGATIVE (NEGATIVE); FENTANYL, URINE NEGATIVE (NEGATIVE); METHADONE, URINE NEGATIVE (NEGATIVE); OPIATES, URINE NEGATIVE (NEGATIVE); OXYCODONE, URINE NEGATIVE (NEGATIVE); PHENCYCLIDINE, URINE NEGATIVE (NEGATIVE)
[2025-07-26 01:39] LABS: ABO O; ANTIBODY SCREEN NEGATIVE; RH POSITIVE
[2025-07-26 01:42] VITALS: BP 120/75
[2025-07-26] MEDS ORDERED: VANCOMYCIN HCL 1 GM in DEXTROSE 5% 250 ML IV SCH (14:00)
--- NOTE | 2025-07-26 18:29 | PR ---
[facility] [address] [place], [place] [address] Signed Progress Notes IP Datetime Report Generated by NOAH: 07/26/2025 18:29 PROGRESS NOTES: [id number] Impression: Normal Progression of Labor Procedures: Artificial ROM Plan: Continue Present Management; Anticipate Vaginal Delivery VITAL SIGNS: [id number] EXAM: [id number] Dilatation: 5.0 Effacement: 85 Effacement: 85 Effacement: 80 Effacement: 80 Effacement: 70 Effacement: 70 Effacement: 50 Station: -2 Station: -2 Station: -2 Station: -2 Station: -3 Station: -3 Station: -3 Contractions: Every 2.5-4 minutes, lasting 60+sec MEMBRANES: [id number] Membranes Status: Ruptured Comments: Pt doing well. Laboring without an epidural at this time. She is coping well, and adjusting postion frequently. Reports contraction intensity has not increased much over the course of the afternoon. She consents to AROM to encourage labor. CE /-2, head applied well to the cervix. Large amount of clear fluid and bloody mucous with rupture. Mom and baby tolerated procedure well. She continues to experience some leaking of fluid with position changes and movement. Anticipate . FETUS A: [id number] FHR Baseline: 145 Variability: Moderate 6-25bpm Accelerations: 15X15 Decelerations: None FHR Category: Category I Presentation: Vertex *Electronically Signed* 07/26/25 8209 ADAL CANNON CNM PATIENT NAME: EVIN ESPINOSA PROGRESS NOTE DATE OF : 89 PHYSICIAN: ADAL CANNON CNM RPT #: [id number] REPORT IS CONFIDENTIAL AND NOT TO BE RELEASED WITHOUT AUTHORIZATION [address] [place] [address] Signed Comments on Fetus A: Reassuring FETUS B: [id number] Signing Physician: Adal Cannon CNM Copies: ~ *Electronically Signed* 07/26/25 1829 ADAL CANNON CNM PATIENT NAME: EVIN ESPINOSA PROGRESS NOTE DATE OF : [birth year] PHYSICIAN: ADAL CANNON CNM RPT #: [id number] REPORT IS CONFIDENTIAL AND NOT TO BE RELEASED WITHOUT AUTHORIZATION
--- NOTE | 2025-07-27 00:29 | PR ---
[facility] [address] [facility] [place], [place] [address] Signed Progress Notes IP Datetime Report Generated by CPN: 07/27/2025 00:29 Impression: Normal Progression of Labor; Reassuring Heart Rate Plan: Continue Present Management Dilatation: 7.0 Effacement: 90 Effacement: 90 Station: 0 Station: -1 Contractions: Every 2.5-3 minutes, lasting 60+ sec Comments: Lenny doing well. Coping with labor using position changes and support measures. She is considering an epidural for pain management. She reports she is feeling fatigued, and is doubting her ability to make it through the rest of her labor. Offering encouragement and support. She is continuing to use the nitrous and resting well between contractions. Current plan is to labor down with the peanut ball, and get an epidural if desired. Variability: Moderate 6-25bpm Decelerations: None FHR Category: Category I Signing Physician: Adal Cannon CNM Copies: ~ *Electronically Signed* 07/27/25 0029 ADAL CANNON CNM PATIENT NAME: LENNY ESPINOSA [place] PROGRESS NOTE DATE OF : 89 PHYSICIAN: ADAL CANNON CNM RPT #: [id number] REPORT IS CONFIDENTIAL AND NOT TO BE RELEASED WITHOUT AUTHORIZATION
[2025-07-27] MEDS ORDERED: ROPIVACAINE 0.2% 200 ML BAG ONE (01:02)
[2025-07-27] MEDS ORDERED: Ropivacaine HCl 20 MG/10 ML AMP ONE (01:02)
--- NOTE | 2025-07-27 04:55 | PR ---
[facility] [address] [facility] [place], [place] [address] Signed Progress Notes IP Datetime Report Generated by CPN: 07/27/2025 04:55 Impression: Normal Progression of Labor; Reassuring Heart Rate Procedures: Sterile Vag Exam Plan: Continue Present Management; Anticipate Vaginal Delivery Informed Consent Obtain: Vaginal Delivery Dilatation: 10.0 Effacement: 100 Effacement: 95 Effacement: 95 Station: 0 Station: 0 Station: 0 Contractions: q 1-2 min Comments: Pt seen and examined. Doing well. Comfortable w/ epidural. Pt now complete and ROT position. Reviewed anticipated course of 2nd stage of labor. Reviewed EFW and adequate pelvis. Reviewed risk of shoulder dystocia and maneuvers employed should a dystocia be enountered. Pt would like to continue with trial of vaginal delivery. All questions answered. Variability: Moderate 6-25bpm Decelerations: Early FHR Category: Category I Signing Physician: Betsy Aguirre DO Copies: ~ *Electronically Signed* 07/27/25 0446 BETSY AGUIRRE (JOHNSON) DO PATIENT NAME: EVIN ESPINOSA [place] PROGRESS NOTE DATE OF : 89 PHYSICIAN: BETSY AGUIRRE (JOHNSON) DO RPT #: [id number] REPORT IS CONFIDENTIAL AND NOT TO BE RELEASED WITHOUT AUTHORIZATION
[2025-07-27] MEDS ORDERED: IBUPROFEN 600 MG TAB PO PRN (06:00)
[2025-07-27] MEDS ORDERED: OXYTOCIN/0.9 % SODIUM CHLORIDE 500 ML IV SCH (06:00)
[2025-07-27] MEDS ORDERED: WITCH HAZEL/GLYCERIN 1 EA PAD TOP PRN (06:00)
[2025-07-27] MEDS ORDERED: ACETAMINOPHEN 325 MG TAB PO PRN (06:00)
[2025-07-27] MEDS ORDERED: MAGNESIUM HYDROXIDE 30 ML UDC PO PRN (06:00)
[2025-07-27] MEDS ORDERED: BENZOCAINE 60 ML AEROSOL TOP PRN (06:00)
[2025-07-27] MEDS ORDERED: HYDROCORTISONE ACETATE 25 MG SUPP PR PRN (06:00)
[2025-07-27] MEDS ORDERED: MAGNESIUM HYDROXIDE/AL HYDROX 30 ML CUP PO PRN (06:00)
[2025-07-27] MEDS ORDERED: CALCIUM CARBONATE 500 MG CHEW PO PRN (06:00)
[2025-07-27] MEDS ORDERED: SENNOSIDES/DOCUSATE 1 EA TAB PO SCH (09:00)
--- NOTE | 2025-07-27 13:43 | PR ---
[facility] [address] [place], [place] [address] Signed PP Progress Notes Datetime Report Generated by CPN: 07/27/2025 13:43 SUBJECTIVE: [id number] Pain: Within Normal Limits Nausea/Vomiting: Denies Flatus: Yes Vital Signs: [id number] Vital Signs: Reviewed; Within Normal Limits Cardiovascular: Normal Respiratory: Normal Abdomen/Uterus: Normal Lochia: Normal Vulva/Perineum: Not Done Breasts: Not Done CVA Tenderness: Normal Extremities: Normal Incision: Not Applicable Progress: Normal Exam Comments: Fundus firm U-2 nontender IMPRESSION/PLAN/PROCEDURES: [id number] Impression: Normal Progression Plan: Continue Present Management Progress Notes: Pt seen and examined. Doing well. Ambulating, voiding, and tolerating full diet. Pain and lochia minimal. well. No fevers/chills or other concerns. Anticipate d/c home tomorrow. Hgb 11.9 Signing Physician: Betsy Aguirre DO Copies: ~ *Electronically Signed* 07/27/25 2679 BETSY AGUIRRE (JOHNSON) DO PATIENT NAME: REINIER ESPINOSAYonatan [place] PROGRESS NOTE DATE OF : 89 PHYSICIAN: BETSY AGUIRRE (JOHNSON) DO RPT #: [id number] REPORT IS CONFIDENTIAL AND NOT TO BE RELEASED WITHOUT AUTHORIZATION
--- NOTE | 2025-07-28 08:26 | PR ---
[facility] [address] [place], [place] [address] Signed PP Progress Notes Datetime Report Generated by CPN: 07/28/2025 08:26 Pain: Within Normal Limits Nausea/Vomiting: Denies Flatus: Yes Bowel Movement: No Vital Signs: Reviewed; Within Normal Limits Cardiovascular: Normal Respiratory: Normal Abdomen/Uterus: Normal Lochia: Normal Vulva/Perineum: Not Done Breasts: Not Done CVA Tenderness: Normal Extremities: Normal Incision: Not Applicable Progress: Normal Exam Comments: Fundus firm U-2 nontender Impression: Normal Progression Plan: Discharge Progress Notes: Pt seen and examined. Doing well. Ambulating, voiding, and tolerating full diet. Pain and lochia minimal. well. No concerns. PP Hgb not ordered by CNM. Reviewed admission Hgb, QBL, and absence of symptoms and pt declines blood draw or iron Rx. Reviewed discharge meds, instructions, and care. All questions answered. F/U 2 wks. Signing Physician: Betsy Aguirre DO Copies: ~ *Electronically Signed* 07/28/25 0893 BETSY AGUIRRE (JOHNSON) DO PATIENT NAME: EVIN ESPINOSA PROGRESS NOTE DATE OF : 89 PHYSICIAN: BETSY AGUIRRE) DO RPT #: [id number] REPORT IS CONFIDENTIAL AND NOT TO BE RELEASED WITHOUT AUTHORIZATION
== END 2025-07-28 11:55 | disposition home or self-care (01) | DRG 807 ==
LOC: FBC 00:02
PROVIDERS: ADMIT Obstetrics & Gynecology; ATTEND Obstetrics & Gynecology
PROC: 10E0XZZ Delivery of Products of Conception, External Approach (ICD-10-PCS; principal; 2025-07-26)
PROC: 3E0R3BZ Introduction of Anesthetic Agent into Spinal Canal, Percutaneous Approach (ICD-10-PCS; 2025-07-26)
PROC: 00HU33Z Insertion of Infusion Device into Spinal Canal, Percutaneous Approach (ICD-10-PCS; 2025-07-26)
PROC: 3E033VJ Introduction of Other Hormone into Peripheral Vein, Percutaneous Approach (ICD-10-PCS; 2025-07-26)
DX: O69.81X0 Labor and delivery complicated by cord around neck, without compression, not applicable or unspecified (principal); Z37.0 Single live birth; O99.824 Streptococcus B carrier state complicating childbirth; Z3A.39 39 weeks gestation of pregnancy; Z88.0 Allergy status to penicillin
CPT/HCPCS: 01960; 36415; 80307; 85027; 86850; 86900; 86901; A9270; J2405; J3373; J7060; J7121

== ENCOUNTER 2025-11-02 23:44 | Emergency (ER) | payer OTHER, BC ==
[~2025-11-02] VITALS: Ht 152.4 cm; Wt 79.5 kg
--- OUTSIDE RECORDS SUMMARY | ~2025-11-02 | XMS | Continuity of Care Document ---
Demographics + + + | Address | [address] | | | [place] [address] | + + + | Preferred Language | Unknown | + + + | Marital Status | | + + + | Pentecostalism Affiliation | Unknown | + + + | Race | White | + + + | Ethnic Group | Not or | + + + Author + + + | Author | [facility] | + + + | Organization | [facility] | + + + | Address | [address] | | | [place] [address] | + + + | Phone | | + + + Care Team Providers + + + + | Care Anesthesiology Faculty Name | Role | Phone | + + + + Unavailable | Unavailable | + + + + Allergies No information. Encounters No information. Functional Status No information. Immunizations No information. Medications + + + + | date | description | facility | + + + + | (no date) | METFORMIN HCL | [facility] | | | | [facility] | + + + + | (no date) | PRASTERONE (DHEA) | [facility] | | | | [facility] | + + + + | (no date) | IODINE | [facility] | | | | [facility] | + + + + | (no date) | MELATONIN | [facility] | | | | [facility] | + + + + | (no date) | PROGESTERONE,MICRONIZED | [facility] | | | | [facility] | + + + + | (no date) | ONDANSETRON | [facility] | | | | [facility] | + + + + | (no date) | Cholecalciferol (Vitamin | [facility] | | | D3) | [facility] | + + + + Problems No information. Procedures No information. Results/Labs No information. Social History +--------+ + + | date | description | facility | +--------+ + + Vital Signs No information."
[2025-11-03] MEDS ORDERED: diazePAM 10 MG/2 ML SYR IV ONE (00:15)
[2025-11-03] MEDS ORDERED: KETOROLAC TROMETHAMINE 30 MG/ML VIAL IV ONE (00:15)
[2025-11-03 00:32] LABS: BASOPHILS 1.5 % (0.1-1.2); EOSINOPHILS 4.0 % (0.7-5.8); LYMPHOCYTES 25.5 % (19.3-51.7); MCH 29.9 PG (25.6-32.2); MCHC 33.5 g/dL (32.2-35.5); MCV 89.3 fL (79.4-94.8); MONOCYTES 8.2 % (4.7-12.5); NEUTROPHILS 60.2 % (34.0-71.1); RBC 4.31 M/uL (3.93-5.22)
[2025-11-03] MEDS ORDERED: CYCLOBENZAPRINE HCL 10 MG TAB PO ONE (00:45)
[2025-11-03 01:02] LABS: ALT (SGPT) 45.0 U/L (14-59); AST (SGOT) 22.0 U/L (15-37); GLOMERULAR FILTRATION RATE,EST 108.0 mL/min (>60); PROTEIN, TOTAL 7.5 g/dL (6.4-8.2); UREA NITROGEN 16.0 mg/dL (7-18)
[2025-11-03] MEDS ORDERED: CYCLOBENZAPRINE10 MG PO (02:10)
[2025-11-03] MEDS ORDERED: CYCLOBENZAPRINE HCL 10 MG HOME.PACK PO ONE (02:15)
[2025-11-03 02:36] VITALS: BP 116/71
== END 2025-11-03 02:37 | disposition home or self-care (01) ==
LOC: ED 23:44
PROVIDERS: Family Medicine
DX: S16.1XXA Strain of muscle, fascia and tendon at neck level, initial encounter (principal); S29.012A Strain of muscle and tendon of back wall of thorax, initial encounter; S00.93XA Contusion of unspecified part of head, initial encounter; Z88.0 Allergy status to penicillin; Z88.8 Allergy status to other drugs, medicaments and biological substances; V50.6XXA Passenger in pick-up truck or van injured in collision with pedestrian or animal in traffic accident, initial encounter
CPT/HCPCS: 36415; 70450; 72125; 72128; 72131; 80053; 84703; 85025; 96374; 99284-25; J1885